=== PATIENT | female | born 1960 | race Caucasian/White ===

== ENCOUNTER → 2024-01-08 | Outpatient (CLI) | payer MEDICARE ==
[~2024-01-08] MED LIST: Iohexol 300 - 10 ML VIAL IV ONE; Triamcinolone 40 MG/ML 1 ML VIAL IJ ONE
== END ==
LOC: COL.RAD 10:13 → EDSEX 10:30 → COL.RAD 10:30
DX: M25.551 Pain in right hip (principal)
CPT/HCPCS: J0665; J3301; Q9967